=== PATIENT | female | born 1965 | race Caucasian/White ===

== ENCOUNTER 2016-08-06 23:57 | Observation (INO) | payer OTHER ==
[~2016-08-06] VITALS: Ht 162.6 cm; Wt 70.3 kg
[2016-08-07 03:49] LABS: HEMOGLOBIN 16.7 gm/dl (12.3-15.3); RED BLOOD COUNT 5.38 M/UL (4.00-5.10); WHITE BLOOD COUNT 12.9 K/UL (4.5-11.0)
[2016-08-07 04:08] LABS: BUN/CREATININE RATIO 23 (0-10)
[2016-08-07] MEDS ORDERED: NITROSTAT 0.40.4 MG SL (11:20)
[2016-08-07] MEDS ORDERED: KLONOPIN0.5 MG PO (11:20)
[2016-08-07] MEDS ORDERED: NEURONTIN 400400 MG PO (11:20)
[2016-08-07] MEDS ORDERED: DICLOFENAC SODI75 MG PO (11:21)
[2016-08-07] MEDS ORDERED: CYMBALTA60 MG PO (11:21)
[2016-08-07] MEDS ORDERED: VITAMIN D350000 UNIT PO (11:21)
[2016-08-07] MEDS ORDERED: PREDNISONE 50 M50 MG PO (11:22)
[2016-08-07] MEDS ORDERED: LIPITOR TAB 2020 MG PO (19:03)
[2016-08-07] MEDS ORDERED: PROTONIX40 MG PO (19:03)
== END 2016-08-07 19:26 | disposition home or self-care (01) ==
LOC: ER1 23:57 → ZEROF 08-07 04:48 → MED SURG 4 08-07 04:48 → ZEROF 08-07 04:48 → MED SURG 4 08-07 09:16
PROVIDERS: Physician Assistant; ADMIT Internal Medicine
DX: R07.89 Other chest pain (principal); E78.5 Hyperlipidemia, unspecified; G35 Multiple sclerosis; F41.9 Anxiety disorder, unspecified; I25.10 Atherosclerotic heart disease of native coronary artery without angina pectoris; Z86.73 Personal history of transient ischemic attack (TIA), and cerebral infarction without residual deficits; Z82.49 Family history of ischemic heart disease and other diseases of the circulatory system; Z79.2 Long term (current) use of antibiotics; Z79.899 Other long term (current) drug therapy; Z90.49 Acquired absence of other specified parts of digestive tract
CPT/HCPCS: 36415; 71010; 78452; 80053; 80061; 82550; 82553; 83874; 84443; 84484; 85025; 93017; 99285; A9502; G0378; J2785

== ENCOUNTER → 2020-06-13 | Outpatient (CLI) | payer OTHER ==
[~2020-06-13] VITALS: Ht 162.6 cm; Wt 72.6 kg
[~2020-06-13] MED LIST: BUSPIRONE HCL7.5 MG PO; CALCIUM 600 +1 EAC3 PO; CYCLOBENZAPRINE10 MG PO; CYMBALTA 30 MG30 MG PO; CYMBALTA30 MG PO; CYMBALTA60 MG PO; DICLOFENAC SODI75 MG PO; DUREZOL5 ML OP; FLEXERIL 10 MG10 MG PO; HEARTBURN RELIE20 MG PO; IBU600 MG PO; IBUPROFEN600 MG PO; IMITREX100 MG PO; KLONOPIN0.5 MG PO; LIPITOR TAB 2020 MG PO; LODINE CAP 300300 MG PO; LOMOTIL 2.5-0.1 EACH PO; MEDROL4 MG PO; MOBIC15 MG PO; NEURONTIN 400400 MG PO; NEURONTIN800 MG PO; NITROSTAT 0.40.4 MG SL; NORCO 7.5-3251 EACH PO; PERCOCET 7.5-31 EACH PO; PREDNISONE10 MG PO; PROTONIX40 MG PO; VISTARIL25 MG PO; VITAMIN D350000 UNIT PO; ZANTAC150 MG PO
== END ==
LOC: OPSV 06-09 09:00
DX: G35 Multiple sclerosis (principal)
CPT/HCPCS: 96365; 96366; 96375; J1200; J2350; J2930; J7030

== ENCOUNTER 2020-08-10 15:07 | Emergency (ER) | payer OTHER ==
[2020-08-10 16:29] LABS: HEMOGLOBIN 16.4 gm/dl (12.3-15.3); RED BLOOD COUNT 5.64 M/UL (4.00-5.10); WHITE BLOOD COUNT 24.8 K/UL (4.5-11.0)
== END 2020-08-10 21:45 | disposition home or self-care (01) ==
LOC: ER1 15:07
PROVIDERS: Preventive Medicine Occupational Medicine
DX: E86.0 Dehydration (principal); D72.829 Elevated white blood cell count, unspecified; I10 Essential (primary) hypertension
CPT/HCPCS: 71045; 80053; 81001; 82550; 82553; 83605; 83874; 84484; 85025; 85652; 86140; 87086; 93005; 96374; 99284; J0696

== ENCOUNTER → 2020-10-11 | Outpatient (CLI) | payer OTHER | LOC: EMI 13:53 | DX: G35 Multiple sclerosis (principal) | CPT/HCPCS: 70553; 72156; A9577 ==

== ENCOUNTER → 2020-11-28 | Day surgery (SDC) | payer OTHER ==
[~2020-11-28] MED LIST changes: +PROTONIX 40 MG40 M1 PO
== END | disposition home or self-care (01) ==
LOC: OR 06:24
DX: K21.00 Gastro-esophageal reflux disease with esophagitis, without bleeding (principal); K22.10 Ulcer of esophagus without bleeding; K31.9 Disease of stomach and duodenum, unspecified; E66.9 Obesity, unspecified; G35 Multiple sclerosis; M06.9 Rheumatoid arthritis, unspecified; E78.5 Hyperlipidemia, unspecified; F17.210 Nicotine dependence, cigarettes, uncomplicated; Z68.31 Body mass index [BMI] 31.0-31.9, adult; Z79.891 Long term (current) use of opiate analgesic; Z79.899 Other long term (current) drug therapy
CPT/HCPCS: J2704; J3010; J7040

== ENCOUNTER → 2020-12-12 | Outpatient (CLI) | payer OTHER ==
[~2020-12-12] VITALS: Ht 162.6 cm; Wt 72.6 kg
== END ==
LOC: OPSV 08:49
DX: G35 Multiple sclerosis (principal); K21.00 Gastro-esophageal reflux disease with esophagitis, without bleeding
CPT/HCPCS: 96375; 96413; 96415; J1200; J2350; J2930; J7030

== ENCOUNTER → 2021-01-18 | Outpatient (CLI) | payer OTHER | LOC: EXRD 14:05 | DX: R06.02 Shortness of breath (principal) | CPT/HCPCS: 71046 ==

== ENCOUNTER → 2021-06-14 | Outpatient (CLI) | payer OTHER ==
[~2021-06-14] VITALS: Ht 162.6 cm; Wt 80.3 kg
== END ==
LOC: OPSV 08:53
DX: G35 Multiple sclerosis (principal)
CPT/HCPCS: 96375; 96413; 96415; J1200; J2350; J2930; J7030

== ENCOUNTER 2021-08-16 07:46 | Emergency (ER) | payer OTHER ==
[2021-08-16 08:12] LABS: HEMOGLOBIN 15.3 gm/dl (12.3-15.3); RED BLOOD COUNT 5.45 M/UL (4.00-5.10); WHITE BLOOD COUNT 15.1 K/UL (4.5-11.0)
[2021-08-16] MEDS ORDERED: ZOFRAN 4 MG TAB4 MG PO (11:35)
== END 2021-08-16 11:49 | disposition home or self-care (01) ==
LOC: ER1 07:46
PROVIDERS: Physician Assistant Medical
DX: R10.84 Generalized abdominal pain (principal); R11.2 Nausea with vomiting, unspecified; F17.210 Nicotine dependence, cigarettes, uncomplicated
CPT/HCPCS: 80053; 81001; 83605; 83690; 85025; 96374; 99284; J2405; J7030; Q9967

== ENCOUNTER → 2021-10-15 | Outpatient (CLI) | payer OTHER ==
[~2021-10-15] MED LIST changes: +ZOFRAN 4 MG TAB4 MG PO
== END ==
LOC: EMI 10:45
DX: G35 Multiple sclerosis (principal)
CPT/HCPCS: 70553; A9577

== ENCOUNTER → 2021-11-02 | Outpatient (CLI) | payer OTHER | LOC: NM 09:00 | DX: K31.84 Gastroparesis (principal) | CPT/HCPCS: 78264; A9541 ==

== ENCOUNTER → 2021-12-12 | Outpatient (CLI) | payer OTHER ==
[~2021-12-12] VITALS: Ht 162.6 cm; Wt 73.0 kg
[2021-12-12 10:16] LABS: HEMOGLOBIN 16.2 gm/dl (12.3-15.3); RED BLOOD COUNT 5.73 M/UL (4.00-5.10); WHITE BLOOD COUNT 13.7 K/UL (4.5-11.0)
[2021-12-12 10:50] LABS: BUN/CREATININE RATIO 19 (0-10)
[2021-12-13 08:14] LABS: VITAMIN D, 25-HYDROXY 61.7 ng/mL (30.0-100.0)
[2021-12-13 16:12] LABS: % NK (CD56/16) 6.4 % (1.4-19.4); AB NK (CD56/16) 269 /uL (24-406); ABS.CD19+ LYMPHS 0 /uL (12-645); LYMPHS 30 % (Not Estab.); LYMPHS (ABSOLUTE) 4.2 x10E3/uL (0.7-3.1); WBC 13.9 x10E3/uL (3.4-10.8)
== END ==
LOC: OPSV 09:00
PROVIDERS: Psychiatry & Neurology Neurology
DX: G35 Multiple sclerosis (principal)
CPT/HCPCS: 80053; 82784; 84443; 85025; 96360; 96375; 96413; 96415; J2350; J2930; J7030